=== PATIENT | male | born 1970 | race African-American/Black ===

== ENCOUNTER 2024-06-22 02:25 | Inpatient (IN) | payer MEDICAID, OTHER ==
[~2024-06-22] VITALS: Ht 165.1 cm; Wt 115.2 kg
[~2024-06-22 02:25] MED LIST: CLON0.2T PO; DILT240C96 PO; DOXA2TAB2 PO
[2024-06-22 02:47] LABS: HEMATOCRIT. 30.2 % (42.0-52.0); HEMOGLOBIN. 9.8 g/dL (14.0-18.0); MEAN CORPUSCULAR HEMOGLOBIN 30.6 pg (28.0-32.0); MEAN CORPUSCULAR HGB CONC 32.6 g/dL (31.0-37.0); MEAN CORPUSCULAR VOLUME 93.7 fL (80.0-94.0); MEAN PLATELET VOLUME 8.1 fl (7.4-10.4); PLATELET 195 x1000/uL (130-400); RED BLOOD CELL COUNT 3.22 mill/uL (4.7-6.1); RED CELL DISTRIBUTION WIDTH 19.7 % (11.6-14.6); WHITE BLOOD COUNT 10.5 x1000/uL (4.5-11.0)
[2024-06-22 02:56] LABS: CHLORIDE 96 mEq/L (98-107); POTASSIUM 3.9 mEq/L (3.5-5.1); SODIUM 136 mEq/L (136-145)
[2024-06-22 02:57] LABS: CALCIUM 8.2 mg/dL (8.7-10.4); CARBON DIOXIDE 27 mEq/L (21-32)
[2024-06-22 02:58] LABS: PARTIAL THROMBOPLASTIN TIME 30.2 sec (23.4-31.0); PROTHROMBIN TIME 11.4 sec (9.6-11.0)
[2024-06-22 03:02] LABS: GLUCOSE 121 mg/dL (70-105); UREA NITROGEN BLOOD 56 mg/dL (9-23)
[2024-06-22 03:04] LABS: PHOSPHORUS 7.9 mg/dL (2.5-4.9)
[2024-06-22 03:07] LABS: DIFFERENTIAL COMMENT 1
[2024-06-22 04:44] LABS: CREATININE 8.9 mg/dL (0.6-1.3)
[2024-06-22 04:45] LABS: ETHANOL BLOOD < 10 mg/dL (<10); TROPONIN I HIGH SENSITIVITY 184 ng/L (3.0-53)
[2024-06-22] MEDS: LORAZEPAM 2MG/ML INJ IV ONE (05:00)
[2024-06-22] MEDS: LORAZEPAM 2MG/ML INJ IV NR ×2 (05:38→14:06)
[2024-06-22 08:38] LABS: ANISOCYTOSIS 2+; PLATELET ESTIMATE NORMAL
[2024-06-22 08:46] VITALS: BP 124/52; PULSE 84; RESP 18; TEMP 36.55848; O2SAT 97
[2024-06-22 08:48] VITALS: BP 124/52; PULSE 84; RESP 18; TEMP 36.5848
[2024-06-22] MEDS: DILTIAZEM HCL 120MG CAPSULE ER 24HR PO SCH (11:38)
[2024-06-22 12:12] VITALS: BP 164/78; PULSE 92; RESP 18; TEMP 36.55848; O2SAT 96
[2024-06-22] MEDS: CLONIDINE 0.2MG TABLET PO SCH (14:05)
[2024-06-22] MEDS ORDERED: LORAZEPAM 2MG/ML INJ IV PRN (15:45)
[2024-06-22 16:25] VITALS: BP 136/78; PULSE 88; RESP 22; TEMP 36.44736; O2SAT 95
[2024-06-22 20:00] VITALS: BP 121/69; PULSE 90; RESP 20; TEMP 36.78072; O2SAT 97
[2024-06-22] MEDS: HEPARIN 5000 UNITS/ML VIAL SUBCUT SCH (21:39)
[2024-06-22] MEDS: LORAZEPAM 1MG TABLET PO PRN (21:39)
[2024-06-22] MEDS: DOXAZOSIN MESYLATE 2MG TABLET PO SCH (21:39)
[2024-06-22 22:00] VITALS: BP 114/57; PULSE 78; RESP 20; TEMP 37.00296; O2SAT 98
[2024-06-22 22:44] LABS: HEPATITIS B SURFACE ANTIGEN NEGATIVE (Negative)
[2024-06-22 23:05] LABS: HEPATITIS A AB IGM NEGATIVE (Negative); HEPATITIS B CORE AB IGM NEGATIVE (Negative)
[2024-06-22 23:06] LABS: HEPATITIS C AB NON REACTIVE (Neg) (Negative)
[2024-06-23 04:00] VITALS: BP 138/88; PULSE 83; RESP 20; TEMP 36.61404; O2SAT 97
[2024-06-23 12:00] VITALS: BP 156/88; PULSE 89; RESP 18; TEMP 36.44736; O2SAT 98
[2024-06-23 13:52] LABS: AMMONIA < 17 uMol/L (<32)
[2024-06-23 13:56] LABS: T4 FREE 1.02 ng/dL (0.89-1.76)
[2024-06-23 13:57] LABS: THYROID STIMULATING HORMONE 0.9 uIU/mL (0.55-4.78); VITAMIN B12 SERUM 553 pg/mL (211-911)
[2024-06-23 20:00] VITALS: BP 134/74; PULSE 83; RESP 22; TEMP 36.55848; O2SAT 96
[2024-06-24] VITALS (13 sets, daily range): BP systolic 129–169; BP diastolic 75–95; PULSE 79–85; RESP 16–22; TEMP 36.44736–36.78072; O2SAT 93–98
[2024-06-24 10:38] LABS: HEMATOCRIT. 28.9 % (42.0-52.0); HEMOGLOBIN. 9.2 g/dL (14.0-18.0); MEAN CORPUSCULAR HGB CONC 31.7 g/dL (31.0-37.0); MEAN CORPUSCULAR VOLUME 94.6 fL (80.0-94.0); MEAN PLATELET VOLUME 8.3 fl (7.4-10.4); PLATELET 255 x1000/uL (130-400); RED BLOOD CELL COUNT 3.05 mill/uL (4.7-6.1); RED CELL DISTRIBUTION WIDTH 19.1 % (11.6-14.6); WHITE BLOOD COUNT 8.8 x1000/uL (4.5-11.0)
[2024-06-24 10:50] LABS: CALCIUM 8.6 mg/dL (8.7-10.4)
[2024-06-24 10:56] LABS: CREATININE 15.1 mg/dL (0.6-1.3)
[2024-06-24 11:05] LABS: DIFFERENTIAL COMMENT 1
[2024-06-24] MEDS ORDERED: LORA-249 MT (12:57)
[2024-06-24 16:40] LABS: PLATELET ESTIMATE NORMAL
== END 2024-06-24 14:45 | disposition home or self-care (01) | DRG 470 ==
LOC: ER 02:25 → 8WST 04:16
PROVIDERS: ADMIT Internal Medicine; ATTEND Internal Medicine
PROC: 5A1D70Z Performance of Urinary Filtration, Intermittent, Less than 6 Hours Per Day (ICD-10-PCS; principal; 2024-06-24)
DX: I12.0 Hypertensive chronic kidney disease with stage 5 chronic kidney disease or end stage renal disease (principal); J81.1 Chronic pulmonary edema; N18.6 End stage renal disease; E87.70 Fluid overload, unspecified; E66.01 Morbid (severe) obesity due to excess calories; E11.22 Type 2 diabetes mellitus with diabetic chronic kidney disease; F41.9 Anxiety disorder, unspecified; Z68.41 Body mass index [BMI] 40.0-44.9, adult; Z99.2 Dependence on renal dialysis
CPT/HCPCS: 36415; 71045; 80048; 80320; 82140; 82607; 83735; 83880; 84100; 84439; 84443; 84481; 84484; 85025; 86705; 86709; 87340; 90935; 93005; 99285; J1644; J2060; G0480

== ENCOUNTER 2024-06-28 15:01 | Emergency (ER) | payer OTHER ==
[~2024-06-28] VITALS: Ht 177.8 cm; Wt 100.0 kg
[~2024-06-28 15:01] MED LIST changes: +LORA-249 MT
[2024-06-28 15:06] VITALS: O2SAT 98
[2024-06-28] MEDS ORDERED: LORA-250 MT (16:03)
[2024-06-28 16:24] VITALS: BP 142/66; PULSE 81; RESP 18; TEMP 36.89184; O2SAT 100
[2024-06-28] MEDS: LORAZEPAM 2MG/ML INJ IM STA (17:37)
[2024-06-28] MEDS: LORAZEPAM 2MG/ML INJ IM ONE (17:40)
== END 2024-06-28 18:45 | disposition home or self-care (01) ==
LOC: ER 15:01
DX: F41.1 Generalized anxiety disorder (principal); I13.11 Hypertensive heart and chronic kidney disease without heart failure, with stage 5 chronic kidney disease, or end stage renal disease; N18.6 End stage renal disease; Z99.2 Dependence on renal dialysis; Z79.899 Other long term (current) drug therapy
CPT/HCPCS: 96372; 99283; J2060; Z7610

== ENCOUNTER 2024-07-06 22:20 | Emergency (ER) | payer OTHER ==
[~2024-07-06] VITALS: Ht 165.1 cm; Wt 100.0 kg
[~2024-07-06 22:20] MED LIST changes: +LORA-250 MT
[2024-07-06 22:28] VITALS: BP 126/72; PULSE 94; RESP 18; TEMP 99; O2SAT 96
[2024-07-06] MEDS: LORAZEPAM 1MG TABLET PO ONE (23:07)
== END 2024-07-06 23:41 | disposition home or self-care (01) ==
LOC: ER 22:20
DX: G25.2 Other specified forms of tremor (principal); I12.0 Hypertensive chronic kidney disease with stage 5 chronic kidney disease or end stage renal disease; N18.6 End stage renal disease; I25.2 Old myocardial infarction; Z00.00 Encounter for general adult medical examination without abnormal findings; Z76.0 Encounter for issue of repeat prescription; Z79.899 Other long term (current) drug therapy; Z99.2 Dependence on renal dialysis
CPT/HCPCS: 99283